=== PATIENT | male | born 1985 | race African-American/Black ===

== ENCOUNTER 2024-08-02 16:14 | Emergency (ER) | payer MEDICAID ==
[~2024-08-02] VITALS: Ht 175.3 cm; Wt 109.2 kg
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
[2024-08-02 18:09] VITALS: BP 122/88; PULSE 98; RESP 19; TEMP 98.2; O2SAT 98
[2024-08-02] MEDS: DexAMETHasone SOD PHOS 10MG/1ML VIAL INJ IM ONE (18:18)
[2024-08-02] MEDS: KETOROLAC TROMETH 60MG/2ML VIAL IM ONE (18:19)
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
[2024-08-02] MEDS ORDERED: TIZA-142 PO (18:58)
[2024-08-02] MEDS ORDERED: IBUP-1456 PO (18:58)
== END 2024-08-02 18:57 | disposition home or self-care (01) ==
LOC: ER 16:14
DX: S33.5XXA Sprain of ligaments of lumbar spine, initial encounter (principal); S13.4XXA Sprain of ligaments of cervical spine, initial encounter; M79.18 Myalgia, other site; X58.XXXA Exposure to other specified factors, initial encounter; Y93.89 Activity, other specified; Y92.410 Unspecified street and highway as the place of occurrence of the external cause; Y99.0 Civilian activity done for income or pay
CPT/HCPCS: 72040; 72100; 96372; 99284; J1100; J1885